=== PATIENT | female | born 1975 | race African-American/Black ===

== ENCOUNTER 2018-01-13 13:13 | Emergency (ER) | payer MEDICAID, OTHER, SELFPAY ==
[2018-01-13] MEDS ORDERED: Prochlorperazine 10 MG/2 ML VIAL ONE (13:29)
== END 2018-01-13 14:08 | disposition home or self-care (01) ==
LOC: BURERS 13:13
DX: R51 Headache (principal)
CPT/HCPCS: 96361; 96374; J0780